=== PATIENT | male | born 1965 | race Caucasian/White ===

== ENCOUNTER 2020-02-14 21:15 | Emergency (ER) | payer MEDICARE, SELFPAY ==
[2020-02-14 21:16] VITALS: BP 169/111; PULSE 123; RESP 20; TEMP 36.6; O2SAT 100
--- NOTE | 2020-02-14 21:37 | ECG_ITS ---
Measurements Intervals [place] Rate: 118 P: 59 SD: 157 QRS: 31 QRSD: 86 T: 59 QT: 302 QTc: 424 Interpretive Statements SINUS TACHYCARDIA EARLY PRECORDIAL R/S TRANSITION BASELINE WANDER- III, AVR, AVL, AVF ABNORMAL ECG Electronically Signed On 02-15-2020 7:01:31 CDT by Paul Hess D.O.
[2020-02-14 21:43] LABS: Basophils Absolute Auto 0.1 K/mm3 (0.0-0.1); Basophils Percent Auto 0.6 % (0.2-1.2); Eosinophils Absolute Auto 0.2 K/mm3 (0-0.3); Eosinophils Percent Auto 2.1 % (0-4.4); Hematocrit 42.2 % (42.0-52.0); Hemoglobin 14.5 g/dL (14.0-18.0); Immature Granulocyte Absolute 0.06 K/mm3 (0.00-0.031); Immature Granulocyte Percent A 0.6 % (0-0.5); Lymphocytes Absolute Auto 1.55 K/mm3 (0.9-3.2); Mean Corpuscular HGB Conc 34.4 g/dl (32-36); Mean Corpuscular Hemoglobin 30.8 pg (26-34); Mean Corpuscular Volume 89.6 fl (80-100); Monocytes Absolute Auto 0.8 K/mm3 (0.1-0.6); Monocytes Percent Auto 7.8 % (2.6-8.5); Neutrophils Absolute Auto 7.1 K/mm3 (1.3-6.7); Neutrophils Percent Auto 72.9 % (45.5-73.1); Platelet Count Result 229 k/mm3 (150-375); Red Blood Count 4.71 M/mm3 (4.6-6.20); Red Cell Distribution Width 14.7 % (11.5-14.5); White Blood Count 9.7 K/mm3 (4.5-10.0)
[2020-02-14 21:56] LABS: Alanine Aminotransferase 25 U/L (4-50); Albumin Level 4.7 g/dL (3.5-5.1); Alkaline Phosphatase 84 U/L (38-126); Anion Gap 11 mmol/L (8-16); Aspartate Amino Transferase 30 U/L (17-59); Bilirubin,Total 0.5 mg/dL (0.2-1.3); Blood Urea Nitrogen 28 mg/dL (9-20); Calcium 9.4 mg/dL (8.4-10.2); Carbon Dioxide 26 mmol/L (22-30); Chloride 100 mmol/L (98-107); Estimated CRCL calculation 55 ml/min; Estimated Glomerular Filt Rate 35; Glucose 118 mg/dL (75-110); Sodium 137 mmol/L (137-145)
--- NOTE | 2020-02-14 21:57 | ED.GENADULT ---
HPI - General Adult General Chief complaint: Anxiety Stated complaint: elevated BP and HR Time Seen by Provider: 02/14/20 21:31 History of Present Illness HPI narrative: He reports feeling shaky and anxious today. at times he feels his heart racing. Additionally he checked his BP and it was running very high. He also noted frequency, dark urine and low back pain. He has had UTIs before. Related Data Allergies Allergy/AdvReac Type Severity Reaction Status Date / Time Quinolones Allergy Mild Verified 09/19/08 15:20 ciprofloxacin Allergy Unknown Verified 11/20/09 15:03 Review of Systems Review of Systems: All systems reviewed & are unremarkable except as noted in HPI and below Constitutional: Constitutional: Denies fever(s) ENT: Reports dizziness Cardiovascular: Cardiovascular: Denies chest pain Respiratory: Respiratory: Reports dyspnea Gastrointestinal: Gastrointestinal: Denies abdominal pain Genitourinary: Genitourinary: Denies hematuria and Reports urinary frequency Musculoskeletal: Musculoskeletal: Reports back pain Neurologic: Denies syncope [facility] [place] Family History Family History Father Family history of diabetes mellitus in first degree relative Sibling Family history of diabetes mellitus in first degree relative Social History Social History Alcohol intake: never Exam Const: General: no acute distress and alert Orientation/consciousness: patient oriented x3 HENMT: Head: normal to inspection Resp: Effort & Inspection: normal respiratory effort Auscultation: clear to auscultation bilaterally Cardio: Rate: tachycardic Rhythm: regular rhythm GI: GI Palp: Yes Soft to palpation and No Tenderness to palpation present (GI) Skin: Other: diaphoretic Neuro: General: patient oriented x3, moves all extremities and CN's II-XI intact bilaterally Speech: normal speech Extrem: General: normal to inspection Psych: Affect: Anxious affect present Course Vital Signs Vital signs: Vital Signs Temperature 36.6 C 02/14/20 21:16 Pulse Rate 123 H 02/14/20 21:16 Respiratory Rate 20 02/14/20 21:16 Blood Pressure 169/111 H 02/14/20 21:16 Pulse Oximetry 100 02/14/20 21:16 Temperature 36.9 C 02/15/20 02:07 Pulse Rate 91 02/15/20 02:07 Respiratory Rate 18 02/15/20 02:07 Blood Pressure 145/96 H 02/15/20 02:07 Pulse Oximetry 98 02/15/20 02:07 Medical Decision Making MDM Narrative Medical decision making narrative: UA consistent with UTI. Vital Signs Vital Signs: Vital Signs Temperature 36.6 C 02/14/20 21:16 Pulse Rate 123 H 02/14/20 21:16 Respiratory Rate 20 02/14/20 21:16 Blood Pressure 169/111 H 02/14/20 21:16 Pulse Oximetry 100 02/14/20 21:16 Temperature 36.9 C 02/15/20 02:07 Pulse Rate 91 02/15/20 02:07 Respiratory Rate 18 02/15/20 02:07 Blood Pressure 145/96 H 02/15/20 02:07 Pulse Oximetry 98 02/15/20 02:07 Lab Data Lab results reviewed: Yes I reviewed the patient's lab results. Result diagrams: 02/14/20 21:38 02/14/20 21:38 Labs: Lab Results 02/14/20 02/14/20 02/14/20 Range/Units 21:38 21:38 21:38 WBC 9.7 (4.5-10.0) K/mm3 RBC 4.71 (4.6-6.20) M/mm3 Hgb 14.5 (14.0-18.0) g/dL Hct 42.2 (42.0-52.0) % MCV 89.6 (80-100) fl MCH 30.8 (26-34) pg MCHC 34.4 (32-36) g/dl RDW 14.7 H (11.5-14.5) % Plt Count 229 (150-375) k/mm3 MPV 9.0 (7.4-10.4) fl Immature Gran % (Auto) 0.6 H (0-0.5) % Neut % (Auto) 72.9 (45.5-73.1) % Lymph % (Auto) 16.0 L (18.3-44.2) % Adams % (Auto) 7.8 (2.6-8.5) % Eos % (Auto) 2.1 (0-4.4) % Baso % (Auto) 0.6 (0.2-1.2) % Lymph # (Auto) 1.55 (0.9-3.2) K/mm3 Adams # (Auto) 0.8 H (0.1-0.6) K/mm3 Eos # (Auto) 0.2 (0-0.3) K/mm3 Baso # (Auto) 0.1 (0.0-0.1) K/mm3 Abs Immat
[2020-02-14] MEDS: SODIUM CHLORIDE 0.9% IV 1,000 ML 999 ML IV CONT (22:10)
[2020-02-14 22:24] LABS: Add Urine Microscopic? YES; Appearance Urine Cloudy (Clear); Bacteria Urine Trace /hpf; Bilirubin Urine Negative (Negative); Blood Urine Negative (Negative); Color Urine Straw (Yellow); Glucose Urine UA Negative (Negative); Ketones Urine Negative (Negative); Leukocyte Esterase Ur 3+ LEU/UL (Negative); Mucus Urine Rare /lpf; Nitrate Urine Negative (Negative); Protein Urine Negative (Negative); Specific Grav Ur 1.013 (1.001-1.035); Squamous Epithelial Cell Urine Occasional /hpf (Few); Urobilinogen Urine Negative mg/dL (<2.0); WBC Urine >75 /hpf
[2020-02-14 22:34] LABS: Troponin I < 0.012 ng/mL (0.000-0.034)
[2020-02-14 23:45] VITALS: BP 145/96; PULSE 94; RESP 18; O2SAT 98
[2020-02-15] MEDS: CEFDINIR 300 MG CAPSULE PO (02:02)
[2020-02-15 02:07] VITALS: BP 145/96; PULSE 91; RESP 18; TEMP 36.9; O2SAT 98
== END 2020-02-15 02:08 | disposition home or self-care (01) ==
PROVIDERS: Emergency Provider Emergency Medicine; PCP Family Medicine Sports Medicine
DX: N39.0 Urinary tract infection, site not specified (principal)
CPT/HCPCS: 36415; 80053; 81001; 84484; 85025; 87077; 87086; 87088; 87186; 93005; 96360; 99283; A9270; J7030

== ENCOUNTER 2020-07-30 09:00 | Outpatient (CLI) | payer MEDICARE, SELFPAY ==
--- NOTE | 2020-08-06 17:15 | WPDHOMESLEEP ---
Sleep Study - Home Unattended Date of Study: 07/30/20 Ordering Provider: Kaleb Arevalo MD; pulmonary; primary care is Demetria Henderson MD Interpreting Provider: Nena Dow MD Home Sleep Study Type: Apnea Link Air Height: 1.8 m Weight: 147.418 kg Body Mass Index: 45.3 Neck Circumference (inches): 17 [place]: 11 Reason for Sleep Study history of obstructive sleep apnea, CPAP broke, needs re-testing Sleep History Lefty Jim is a 55 year-old man who was diagnosed with obstructive sleep apnea in 2005, was on CPAP 10 cm. He had a split night study 10/30/2013 AHI was 27.8 with an optimal pressure of 6 cm. His CPAP device is broken, and he now is being tested with plans to use an auto-PAP. He frequently snores, however it is never loud enough that others complain about it. He frequently awakens from sleep feeling short of breath and having heartburn, belching or coughing. He constantly has trouble sleeping with a cold. He occasionally wakes up gasping for breath at night. He frequently has breathing problems at night observed by others. He rarely sweats excessively at night. He frequently notices his heart pounding or beating irregularly at night. He rarely falls asleep during the day. He does not fall asleep involuntarily or while driving. He does not fall asleep while exerting physical effort. He rarely has loss of muscle tone with strong emotion. He does not have daytime difficulties due to excessive sleepiness and does not feel paralyzed on waking or falling asleep. He occasionally has vivid dreamlike scenes upon awakening or falling asleep. He is not afraid to go to sleep. He rarely has nightmares. He occasionally remembers his dreams. He constantly has racing thoughts, rarely feels sad or depressed, constantly has anxiety. He frequently has muscular tension. He constantly notices parts of his body jerking. He occasionally kicks at night. He constantly has crawling and achy feelings in his legs, and leg pain during the night. He does not have morning jaw pain . He occasionally grinds his teeth at night. He constantly is bothered by pain in the day, is awakened by pain at night, feels stiff in the mornings, frequently wakes with sore muscles and constantly wakes with pain in the neck and spine. He has concentration difficulties, dizziness, fatigue, headaches, and takes antacids regularly. Normal bedtime is between 10:00 p.m. and midnight, taking what feels like forever to fall asleep. He wakes up 3-5 times at night to urinate and get a drink of water before returning to sleep, usually within 15-20 minutes. He does not take naps. A short 10-15 minute nap is not refreshing. He is drowsy when he wakes in the morning. He feels better in the afternoon compared to the morning. Habits: Never smoked tobacco. Caffeine 1-3 per day. Alcohol 1-6 per day. No recreational drugs. [facility] Past Medical History Medical History (Updated 08/06/20 @ 18:48 by Nena Dow MD) Diabetes GERD (gastroesophageal reflux disease) Gout Hypertension Lumbar herniated disc Obstructive sleep apnea Rhinitis, allergic Seasonal allergies Stroke Surgical History Surgical History (Updated 08/06/20 @ 18:40 by Nena Dow MD) History of ankle surgery History of cholecystectomy History of hernia repair History of knee surgery Family History Family History (Updated 08/06/20 @ 18:41 by Nena Dow MD) Father Family history of diabetes mellitus in first degree relative Heart disease Diabetes mellitus Sibling Family history of diabetes mellitus in first degree relative Heart disease Mother Heart disease Social History Social History Alcohol intake: never Medications Home Medications Medication Instructions Recorded Confirmed Type cefdinir 300 mg PO Q12H #14 cap 02/15/20 Rx Medications: aspirin 81 mg daily vitamin D3 2000 units daily clopidogrel 75 mg a d
[2020-08-06 17:26] VITALS: BMI 45.3
== END 2020-07-30 09:01 | disposition home or self-care (01) ==
LOC: ANHCSM 09:02
PROVIDERS: Family Provider Family Medicine; PCP Family Medicine Sports Medicine
DX: G47.33 Obstructive sleep apnea (adult) (pediatric) (principal)
CPT/HCPCS: 95806

== ENCOUNTER 2022-09-07 14:44 | Emergency (ER) | payer MEDICARE, SELFPAY ==
[2022-09-07 16:06] VITALS: BP 117/56; PULSE 86; RESP 16; TEMP 36.6; O2SAT 93
--- NOTE | 2022-09-07 19:53 | PC.NURSE ---
Pt approached triage desk and asked about wait time. This RN explained that wait times cannot be given. Pt states he is going home. Educated on risks of leaving before seeing provider, pt verbalized understanding and ambulated out of ED in no obvious distress.
== END 2022-09-07 19:53 | disposition left against medical advice (07) ==
LOC: ANHED 20:11
PROVIDERS: PCP Family Medicine Sports Medicine
DX: M79.672 Pain in left foot (principal)
CPT/HCPCS: 99199